=== PATIENT | male | born 1985 | race African-American/Black ===

== ENCOUNTER 2024-10-19 15:54 | Emergency (ER) | payer MEDICAID ==
[~2024-10-19] VITALS: Ht 180.3 cm; Wt 70.5 kg
[2024-10-19 16:19] VITALS: BP 121/70; PULSE 98; RESP 18; TEMP 98.8; O2SAT 100
[2024-10-19] MEDS ORDERED: ARIP15TA27 PO (16:23)
[2024-10-19] MEDS ORDERED: DOXY-354 PO (18:30)
[2024-10-19] MEDS: DOXYCYCLINE HYCLATE 100 MG TABLET PO ONE (18:38)
== END 2024-10-19 18:47 | disposition home or self-care (01) ==
LOC: EMS 15:58
DX: L02.31 Cutaneous abscess of buttock (principal); Z79.899 Other long term (current) drug therapy
CPT/HCPCS: 99283